=== PATIENT | male | born 1965 | race Caucasian/White ===

== ENCOUNTER 2023-02-07 09:22 | Day surgery (SDC) | payer OTHER ==
[2023-02-07] MEDS ORDERED: LIDOCAINE HCL 2% 100 MG/5 ML IJ ONE (09:23)
[2023-02-07] MEDS ORDERED: DIPRIVAN 200 MG/20 ML IV ONE (11:07)
--- NOTE | 2023-02-07 12:45 | XRAY ---
Indication: Right C2-C4 MBB. Intraoperative fluoroscopy provided for 22 seconds. 2 digital spot image submitted for interpretation demonstrates posterior needle tips projecting over the expected right C2-C4 nerve roots. Correlate with intraoperative findings/report.
--- NOTE | 2023-02-07 13:02 | XRAY ---
22 seconds of fluoroscopy was used in surgery for a right C2-C4 MBB.
[2023-02-07] MEDS ORDERED: Lactated Ringers 1,000 ML IV ONE (13:35)
== END 2023-02-07 11:30 | disposition home or self-care (01) ==
LOC: SDC-PAIN 09:22
PROVIDERS: ATTEND Psychiatry & Neurology Pain Medicine
DX: M47.812 Spondylosis without myelopathy or radiculopathy, cervical region (principal); Z79.899 Other long term (current) drug therapy
CPT/HCPCS: 64490; 64491; 72040; 77002; J2704

== ENCOUNTER 2023-04-05 13:02 | Day surgery (SDC) | payer OTHER ==
[2023-04-05] MEDS ORDERED: BUPIVACAINE 0.5% VIAL IJ ONE (13:03)
[2023-04-05] MEDS ORDERED: DIPRIVAN 200 MG/20 ML IV ONE (16:02)
[2023-04-05] MEDS ORDERED: Lactated Ringers 1,000 ML IV ONE (16:07)
--- NOTE | 2023-04-05 20:09 | XRAY ---
Indication: Right C2-C4 MBB. Intraoperative fluoroscopy provided for 31 seconds. 3 digital spot image submitted for interpretation demonstrates posterior needle tips projecting over the expected right C2-C4 nerve roots. Correlate with intraoperative findings/report.
--- NOTE | 2023-04-06 10:04 | XRAY ---
31 seconds of fluoroscopy was used in surgery for a right C2-C4 MBB.
== END 2023-04-05 16:32 | disposition home or self-care (01) ==
LOC: SDC-PAIN 13:02
PROVIDERS: ATTEND Psychiatry & Neurology Pain Medicine
DX: M47.812 Spondylosis without myelopathy or radiculopathy, cervical region (principal)
CPT/HCPCS: 64490; 64491; 72040; 77002; J2704

== ENCOUNTER 2023-05-17 12:16 | Day surgery (SDC) | payer OTHER ==
[2023-05-17] MEDS ORDERED: BUPIVACAINE 0.5% VIAL IJ ONE (12:17)
[2023-05-17] MEDS ORDERED: DIPRIVAN 200 MG/20 ML IV ONE (13:30)
--- NOTE | 2023-05-17 14:58 | XRAY ---
Indication: Left C2-C4 MBB. Intraoperative fluoroscopy provided for 19 seconds. 3 digital spot image submitted for interpretation demonstrates posterior needle tips projecting over the expected left C2-C4 nerve roots. Correlate with intraoperative findings/report.
[2023-05-17] MEDS ORDERED: Lactated Ringers 1,000 ML IV ONE (15:57)
--- NOTE | 2023-05-18 11:51 | XRAY ---
19 seconds of fluoroscopy was used in surgery for a left C2-C4 MBB.
== END 2023-05-17 14:04 | disposition home or self-care (01) ==
LOC: SDC-PAIN 12:16
PROVIDERS: ATTEND Psychiatry & Neurology Pain Medicine
DX: M47.812 Spondylosis without myelopathy or radiculopathy, cervical region (principal); Z79.899 Other long term (current) drug therapy
CPT/HCPCS: 64490; 64491; 72040; 77002; J2704

== ENCOUNTER 2023-06-20 06:49 | Day surgery (SDC) | payer OTHER ==
[2023-06-20] MEDS ORDERED: Decadron 4 MG INJ IV ONE (06:50)
[2023-06-20] MEDS ORDERED: XYLOCAINE-MPF 1% 5ML SDV IJ ONE (06:50)
[2023-06-20] MEDS ORDERED: BUPIVACAINE 0.5% VIAL IJ ONE (06:50)
[2023-06-20] MEDS ORDERED: DIPRIVAN 200 MG/20 ML IV ONE (08:14)
[2023-06-20] MEDS ORDERED: Xylocaine-Mpf 2% 5 Ml Vial ONE (08:14)
[2023-06-20] MEDS ORDERED: Lactated Ringers 1,000 ML IV ONE (09:04)
--- NOTE | 2023-06-20 10:01 | XRAY ---
Indication: Right C2-C4 RFA. Intraoperative fluoroscopy provided for 35 seconds. 4 digital spot images submitted for interpretation demonstrates posterior needle tips projecting over the expected right C2-C4 nerve roots. Correlate with intraoperative findings/report.
--- NOTE | 2023-06-20 10:03 | XRAY ---
35 seconds of fluoroscopy was used in surgery for a right C2-C4 RFA.
== END 2023-06-20 09:58 | disposition home or self-care (01) ==
LOC: SDC-PAIN 06:49
PROVIDERS: ATTEND Psychiatry & Neurology Pain Medicine
DX: M47.812 Spondylosis without myelopathy or radiculopathy, cervical region (principal)
CPT/HCPCS: 64633; 64634; 72040; 77002; J1100; J2704

== ENCOUNTER 2023-06-27 06:51 | Day surgery (SDC) | payer OTHER ==
[2023-06-27] MEDS ORDERED: Depo-Medrol 40 MG/ML IM ONE (06:52)
[2023-06-27] MEDS ORDERED: XYLOCAINE-MPF 1% 5ML SDV IJ ONE (06:52)
[2023-06-27] MEDS ORDERED: BUPIVACAINE 0.5% VIAL IJ ONE (06:52)
[2023-06-27] MEDS ORDERED: Versed 2 MG/2 ML Injection ONE (08:12)
[2023-06-27] MEDS ORDERED: DIPRIVAN 200 MG/20 ML IV ONE (08:12)
[2023-06-27] MEDS ORDERED: Lactated Ringers 1,000 ML IV ONE (09:08)
--- NOTE | 2023-06-27 10:12 | XRAY ---
Indication: Left C2-C4 RFA. Intraoperative fluoroscopy provided for 33 seconds. 3 digital spot image submitted for interpretation demonstrates posterior needle tips projecting over the expected left C2-C4 nerve roots. Correlate with intraoperative findings/report.
--- NOTE | 2023-06-27 11:33 | XRAY ---
33 seconds of fluoroscopy was used in surgery for a left C2-C4 RFA.
== END 2023-06-27 08:50 | disposition home or self-care (01) ==
LOC: SDC-PAIN 06:51
PROVIDERS: ATTEND Psychiatry & Neurology Pain Medicine
DX: M47.812 Spondylosis without myelopathy or radiculopathy, cervical region (principal)
CPT/HCPCS: 64633; 64634; 72040; 77002; J1030; J2250; J2704

== ENCOUNTER 2024-04-16 11:52 | Day surgery (SDC) | payer OTHER ==
[2024-04-16] MEDS ORDERED: Xylocaine-Mpf 2% 5 Ml Vial IJ ONE (11:53)
[2024-04-16] MEDS ORDERED: DIPRIVAN 200 MG/20 ML IV ONE (13:42)
--- NOTE | 2024-04-16 14:17 | XRAY ---
Indication: Bilateral L4-S1 MBB. Intraoperative fluoroscopy provided for 10 seconds. Single digital spot images submitted for interpretation demonstrates posterior needle tips projecting over the expected left and right L4-S1 nerve roots. Correlate with intraoperative findings/report.
--- NOTE | 2024-04-16 14:25 | XRAY ---
10 seconds of fluoroscopy was used in surgery for a bilateral L4-S1 MBB.
== END 2024-04-16 14:10 | disposition home or self-care (01) ==
LOC: SDC-PAIN 11:52
PROVIDERS: ATTEND Psychiatry & Neurology Pain Medicine
DX: M47.816 Spondylosis without myelopathy or radiculopathy, lumbar region (principal)
CPT/HCPCS: 64493; 64494; 72020; 77002; J2704

== ENCOUNTER 2024-05-21 14:26 | Day surgery (SDC) | payer OTHER ==
[2024-05-21] MEDS ORDERED: BUPIVACAINE 0.5% VIAL IJ ONE (14:27)
[2024-05-21] MEDS ORDERED: DIPRIVAN 200 MG/20 ML IV ONE (16:05)
--- NOTE | 2024-05-21 18:48 | XRAY ---
Indication: Bilateral L4-S1 MBB. Intraoperative fluoroscopy provided for 7 seconds. Single digital spot image submitted for interpretation demonstrates posterior needle tips projecting over the expected left and right L4-S1 nerve roots. Correlate with intraoperative findings/report.
--- NOTE | 2024-05-21 19:25 | XRAY ---
7 seconds of fluoroscopy was used in surgery for a bilateral L4-S1 MBB.
== END 2024-05-21 16:32 | disposition home or self-care (01) ==
LOC: SDC-PAIN 14:26
PROVIDERS: ATTEND Psychiatry & Neurology Pain Medicine
DX: M47.817 Spondylosis without myelopathy or radiculopathy, lumbosacral region (principal)
CPT/HCPCS: 64493; 64494; 72020; 77002; J2704

== ENCOUNTER 2024-07-23 11:36 | Day surgery (SDC) | payer OTHER ==
[2024-07-23] MEDS ORDERED: Depo-Medrol 40 MG/ML IM ONE (11:37)
[2024-07-23] MEDS ORDERED: BUPIVACAINE 0.5% VIAL IJ ONE (11:37)
[2024-07-23] MEDS ORDERED: LIDOCAINE HCL 1% AMPUL 5 ML IJ ONE (11:37)
[2024-07-23] MEDS ORDERED: propofoL IV ONE (13:16)
--- NOTE | 2024-07-23 14:51 | XRAY ---
Indication: Left L4-S1 RFA. Intraoperative fluoroscopy provided for 16 seconds. 4 digital spot image submitted for interpretation demonstrates posterior needle tips projecting over expected left L4-S1 nerve roots. Correlate with intraoperative findings/report.
--- NOTE | 2024-07-23 15:00 | XRAY ---
16 seconds of fluoroscopy was used in surgery for a left L4-S1 RFA.
== END 2024-07-23 13:57 | disposition home or self-care (01) ==
LOC: SDC-PAIN 11:36
PROVIDERS: ATTEND Psychiatry & Neurology Pain Medicine
DX: M47.817 Spondylosis without myelopathy or radiculopathy, lumbosacral region (principal)
CPT/HCPCS: 72100; 77002; J2704

== ENCOUNTER 2024-08-14 06:45 | Day surgery (SDC) | payer OTHER ==
[2024-08-14] MEDS ORDERED: methylPREDNISolone acetate IM ONE (06:46)
[2024-08-14] MEDS ORDERED: BUPIVACAINE 0.5% VIAL IJ ONE (06:46)
[2024-08-14] MEDS ORDERED: LIDOCAINE HCL 1% 50 MG/5 ML VL IJ ONE (06:46)
[2024-08-14] MEDS ORDERED: propofoL IV ONE (08:01)
--- NOTE | 2024-08-14 20:57 | XRAY ---
Indication: Right L4-S1 RFA. Intraoperative fluoroscopy provided for 22 seconds. 4 digital spot image submitted for interpretation demonstrates posterior needle tips projecting over expected right L4-S1 nerve roots. Correlate with intraoperative findings/report.
--- NOTE | 2024-08-14 21:52 | XRAY ---
22 seconds of fluoroscopy was used in surgery for a right L4-S1 RFA.
== END 2024-08-14 08:35 | disposition home or self-care (01) ==
LOC: SDC-PAIN 06:45
PROVIDERS: ATTEND Psychiatry & Neurology Pain Medicine
DX: M47.816 Spondylosis without myelopathy or radiculopathy, lumbar region (principal)
CPT/HCPCS: 64635; 64636; 72100; 77002; J1010; J2704